=== PATIENT | male | born 1980 | race Caucasian/White ===

== ENCOUNTER 2021-03-08 18:16 | Emergency (ER) | payer OTHER, MEDICARE ==
[2021-03-08] MEDS ORDERED: traMADol HCl 50 MG TAB ONE ×2 (18:26→18:34)
[2021-03-08] MEDS ORDERED: Ketorolac Tromethamine 60 MG/2 ML VIAL ONE (18:26)
== END 2021-03-08 20:00 | disposition home or self-care (01) ==
LOC: NAV ERS 18:16
DX: S53.402A Unspecified sprain of left elbow, initial encounter (principal); F17.210 Nicotine dependence, cigarettes, uncomplicated; V19.9XXA Pedal cyclist (driver) (passenger) injured in unspecified traffic accident, initial encounter
CPT/HCPCS: 96372; J1885

== ENCOUNTER 2022-06-14 12:48 | Emergency (ER) | payer OTHER, SELFPAY ==
[2022-06-14] MEDS ORDERED: Clindamycin 150 MG CAP ONE (13:31)
[2022-06-14] MEDS ORDERED: Naproxen 500 MG TAB ONE (13:31)
[2022-06-14] MEDS ORDERED: Ondansetron ODT 4 MG TAB ONE (13:31)
[2022-06-14] MEDS ORDERED: Acetaminophen 500 MG TAB ONE (13:31)
== END 2022-06-14 14:08 | disposition home or self-care (01) ==
LOC: NAV ERS 12:48
DX: S41.152A Open bite of left upper arm, initial encounter (principal); L03.114 Cellulitis of left upper limb; L03.116 Cellulitis of left lower limb; F17.210 Nicotine dependence, cigarettes, uncomplicated; W54.0XXA Bitten by dog, initial encounter
CPT/HCPCS: Q0162

== ENCOUNTER 2022-06-17 05:07 | Emergency (ER) | payer SELFPAY ==
[2022-06-17 05:57] LABS: Hemoglobin 12.1 g/dL (14.0-18.0); Mean Corpuscular HGB CONC 30.9 g/dL (32.0-36.0); Mean Corpuscular Hemoglobin 28.8 pg (27.0-31.0); Mean Corpuscular Volume 93.2 fL (78.0-98.0); Mean Platelet Volume 6.4 fL (7.4-10.4); Platelet Count 264 thou/uL (130-400); RBC Distribution Width 12.5 % (11.5-14.5); Red Blood Cell (RBC) Count 4.21 mill/uL (4.70-6.10)
[2022-06-17 06:10] LABS: ALT (SGPT) 26 U/L (8-55); AST (SGOT) 27 U/L (5-34); Albumin 3.6 g/dL (3.5-5.0); Alkaline Phosphatase 56 U/L (40-110); Anion Gap 13 mmol/L (10-20); BUN (Urea Nitrogen) 13 mg/dL (8.9-20.6); Bilirubin, Total 0.3 mg/dL (0.2-1.2); Calc. Creatinine Clearance 0 mL/min (70-130); Calcium 8.7 mg/dL (7.8-10.44); Carbon Dioxide 26 mmol/L (22-29); Chloride 105 mmol/L (98-107); Estimated GFR 114; Globulin 3.2 g/dL (2.4-3.5); Glucose 101 mg/dL (70-105); Protein, Total 6.8 g/dL (6.0-8.3); Sodium 141 mmol/L (136-145)
[2022-06-17] MEDS ORDERED: Lidocaine 1% 20 ML MDV ONE ×2 (06:13→06:35)
[2022-06-17 06:23] LABS: Band 10 % (5-11); Lymphocytes 20 % (21-51); MDiff Complete? YES; Monocytes 10 % (0-10); Neutrophil 60 % (42-75)
[2022-06-17 06:24] LABS: Platelet Morphology Comment Appears Adequate
[2022-06-17] MEDS ORDERED: Potassium Chloride 20 MEQ TAB ONE (07:12)
== END 2022-06-17 07:20 | disposition home or self-care (01) ==
LOC: NAV ERS 05:07
DX: L02.416 Cutaneous abscess of left lower limb (principal); E87.6 Hypokalemia; F17.210 Nicotine dependence, cigarettes, uncomplicated
CPT/HCPCS: 10061; 80053; 83605; 85025; 87040; 87070; 87077; 87186; 87205